=== PATIENT | female | born 1940 | race Caucasian/White ===

== ENCOUNTER 2016-11-25 13:33 | Emergency (ER) | payer MEDICARE, OTHER ==
--- NOTE | 2016-11-25 13:43 | EDPRACDOC ---
- History of Present Illness HPI: PATIENT WITH HYPOTENSION AND SOB AT SENIOR CARE THIS AM. 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 PATIENT STILL FULL CODE AT THIS POINT. PREVIOUSLY UNDER CARE OF DR. PEDROZA. Shortness of Breath: Severe Relevant History: Reports: COPD Rhinorrhea: Reports: None Ear Symptoms: Reports: None SOB Worsens with: Reports: Exertion SOB Improves with: Reports: Nothing <Soto Reis - Last Filed: 11/25/16 15:54> <Flor Acosta - Last Filed: 11/25/16 17:53> - General Information Chief Complaint: Dyspnea/Resp distress Stated Complaint: SEPSIS Time Seen by Provider: 11/25/16 13:40 Home Medications: Home Medications Aspirin [Ecotrin] 81 mg PO DAILY 03/27/15 Desipramine HCl 50 mg PO DAILY 03/27/15 Albuterol/Ipratropium Neb [Duoneb] 3 ml NEB .QID X 10D 11/25/16 Calcium Carbonate/Vitamin D3 [Calcium 500 + Vit D Caplet] 1 tab PO BID 11/25/16 Dexamethasone 4 mg PO BID 11/25/16 Fentanyl [Duragesic] 50 mcg TOP Q72H 11/25/16 Guaifenesin [Humabid, Mucinex] 1,200 mg PO .BID X 10D 11/25/16 Levofloxacin [Levaquin] 750 mg PO .DAILY X 7D 11/25/16 Methocarbamol [Robaxin] 500 mg PO TID 11/25/16 Morphine Sulfate 15 mg PO Q4H PRN 11/25/16 Morphine Sulfate 15 mg PO QAM 11/25/16 Omeprazole 40 mg PO DAILY 11/25/16 Ondansetron HCl [Zofran] 4 mg PO Q4H PRN 11/25/16 Oxazepam 10 mg PO TID 11/25/16 Sennosides/Docusate Sodium [Senna-S Tablet] 2 tab PO QHS 11/25/16 Valsartan [Diovan] 80 mg PO DAILY 11/25/16 Allergies/Adverse Reactions: Allergies Allergy/AdvReac Type Severity Reaction Status Date / Time boraxin Allergy Anaphylaxis Uncoded 11/25/16 13:41 * - Treatment Prior to ED Arrival Reported Medications/Treatment SPECIAL EDUCATION EDUCATIONAL ASSISTANT EMS Treatment BLS <Flor Acosta - Last Filed: 11/25/16 17:53> ED Past Medical History - History Reviewed Yes Nurses notes reviewed and agree except as marked Travel Outside of [place] in the Last 3 Months?: No - Patient Medical History Cardiac History: Reports: Hypertension, Hypercholesterolemia GI/ History: Reports: Gastroesophageal Reflux Psychological History: Reports: Anxiety Systemic History: Reports: Cancer (BREAST WITH SPREAD TO BONE), Diabetes, Other (NEURALGIA OF THE FACE) - Social Medical History Smoking Status: Never smoker Lives In: Prison Facility <Soto Reis - Last Filed: 11/25/16 15:54> EDM Review of Systems - Review of Systems ROS Negative Except as Marked: Yes All systems reviewed and were negative except as marked Constitutional: Fatigue. negative: Chills, Fever, Loss of Appetite, Weakness Eyes: No Symptoms Reported. negative: Redness, Blurred Vision, Double Vision, Discharge, Pain, Light Sensitive, Photophobia Ears: No Symptoms Reported. negative: Pain, Hearing Loss, Drainage, Ear Pulling Throat: No Symptoms Reported. negative: Pain, Swelling Nose: No Symptoms Reported. negative: Congestion, Bleeding, Discharge, Injection, Swelling, Deformity, Ecchymosis, Tender, Abrasion, Laceration Mouth: No Symptoms Reported. negative: Pain, Drooling Respiratory: Shortness of Breath. negative: Barky Cough, Brassy Cough, Cough, Hemoptysis, Wheezing Cardiovascular: No Symptoms Reported. negative: Chest Pain, Palpitations, Syncope, Edema, Orthopnea, PND, Skin Mottling, Cyanosis Gastrointestinal: No Symptoms Reported. negative: Pain, Constipation, Nausea, Vomiting, Diarrhea, Melena, Formula Intolerance Genitourinary: No Symptoms Reported. negative: Dysuria, Hematuria, Frequency, Discharge, Bleeding, Testicular Pain, Neurological: No Symptoms Reported. negative: Headache, Dizziness, Seizure, Numbness, Weakness, Speech Difficulty, Gait Difficulty Musculoskeletal: No Symptoms Reported. negative: Neck, Chestwall, Ribs, Back, Shoulder, Arm, Elbow, Forearm, Wrist, Hand, Pelvis, Hip, Femur, Knee, Leg, Ankle , Foot Integumentary: No Symptoms Reported. negative: Itching, Rash, Bruising, Wound Allergic/Immunologic: No Symptoms Reported. negative: Hives, Itching Hematologic: No Symptoms Reported. negative: Lymphadenopathy, Easy Bruising, Easy Bleeding Endocrine: No Symptoms Reported. negative: Weight Gain, Weight Loss Psychiatric: No Symptoms Reported. negative: Anxiety, Depression, Hallucinations, Insomnia, Suicidal <Soto Reis - Last Filed: 11/25/16 15:54> - Physical Exam Constitutional: Alert (Awake), Distress (MODERATE) Oriented to: Person, Place Last recorded Vital Signs: Oxygen Pulse Oxygen Saturation O2 Device Oxygen Flow Rate Fraction of Inspired Oxygen ( FIO2) - HEENT Head: Normal ( normocephalic) Eye Exam: Normal (PERRL, EOMI, Sclera white) Oropharynx: Normal (Pharynx:Moist without exudate,Gums-no swelling) Tympanic Membrane: Normal ENT EAC: Normal TMJ: Normal Nose: No Symptoms Reported (septum midline) Neck: Normal (FROM, trachea at midline) - Respiratory/Cardiovascular Respiratory: Diminished, Rhonchi (RIGHT DIMINISHED MORE THAN LEFT) Cardiovascular: Tachycardia - GI Auscultation: Normal (NABS) Palpation: Normal (Soft,No rebound or guarding, non distended) Tenderness: Non tender Mensah's Sign: Negative - Bladder: Normal - Musculoskeletal Back: Normal (Non-Tender) - Integumentary Skin: Cool, Mottling Lymphatics: Normal (no adenopathy) - Neurologic Memory Impaired: Normal Motor Function: Normal (Normal tone, Pulses 2+ No cyanosis or edema, FROM) Cranial Nerve: Normal (CN II-X11 intact sensation, strength 5/5) Cerebellar: Normal Mood Description: Normal Perception: Normal <Soto Reis - Last Filed: 11/25/16 15:54> - Physical Exam Last recorded Vital Signs: Last Vital Signs Temp 95.9 F L 11/25/16 13:46 Pulse 94 11/25/16 15:40 Resp 20 11/25/16 15:40 BP 99/45 L 11/25/16 15:40 Pulse Ox 97 11/25/16 15:40 Oxygen Pulse Oxygen Saturation 97 O2 Device Nasal Cannula Oxygen Flow Rate 2 Fraction of Inspired Oxygen ( 2 FIO2) <Flor Acosta - Last Filed: 11/25/16 17:53> ED Procedures - Central Line Informed of risks, benefits and alternatives described.: Yes Central Line Informed Consent Signed: Written Indication: Hypotension, Volume Resuscitation, Medication Administration, No peripheral access Line Procedure: Chlorahexadine, Sterile drapes applied, Sterile dressing applied Equipment used during procedure: Hat and Mask, Sterile Gown, Sterile Gloves Line Lumen: triple Central Line Postion: femoral (R) Anesthesia: Lidocaine cc's of anesthesia: 2 Line Position approached and secured by standard fashion: sutured, good blood return Complications: none <Flor Acosta - Last Filed: 11/25/16 17:53> ED SOB MDM - Results Result Diagrams: 11/25/16 13:55 11/25/16 13:55 - EKG EKG #1 EKG Time: 13:41 -: Yes EKG interpreted by me Rate: bpm: 187 Bob White: Normal Rhythm: Afib Block: None Hypertrophy: None ST: Normal <Soto Reis - Last Filed: 11/25/16 15:54> - Results Result Diagrams: 11/25/16 13:55 11/25/16 13:55 Results: WBC 7.0 xk/uL (3.8-10.8) 11/25/16 13:55 RBC 3.71 xM/uL (4.20-5.40) L 11/25/16 13:55 Hgb 11.1 g/dL (12.0-16.0) L 11/25/16 13:55 Hct 35.7 % (36-47) L 11/25/16 13:55 MCV 96 fL (81-99) 11/25/16 13:55 MCH 30.0 pg (27-32) 11/25/16 13:55 MCHC 31.2 g/dl (33-36) L 11/25/16 13:55 RDW 17.1 % (11.5-14.5) H 11/25/16 13:55 Plt Count 60 xk/uL (130-400) L 11/25/16 13:55 MPV 11.0 fL (7.4-10.4) H 11/25/16 13:55 Neut % (Auto) Cancelled 11/25/16 13:55 Lymph % (Auto) Cancelled 11/25/16 13:55 [place] % (Auto) Cancelled 11/25/16 13:55 Eos % (Auto) Cancelled 11/25/16 13:55 Baso % (Auto) Cancelled 11/25/16 13:55 Absolute Neuts (auto) Cancelled 11/25/16 13:55 Absolute Lymphs (auto) Cancelled 11/25/16 13:55 Seg Neuts % (Manual) 81 % (45-76) H 11/25/16 13:55 Band Neutrophils % 13 % (0-5) H 11/25/16 13:55 Monocytes % (Manual) 6 % (0-10) 11/25/16 13:55 Absolute Neutrophils 6.58 xk/uL (1.7-8.2) 11/25/16 13:55 Toxic Granulation 3+ 11/25/16 13:55 Dohle Bodies 2+ 11/25/16 13:55 Platelet Estimate Dec (NORMAL) 11/25/16 13:55 RBC Morphology 1+ teardrop 1+ aniso 1+ poik 11/25/16 13:55 RBC Morphology 1+ teardrop 1+ aniso 1+ poik 11/25/16 13:55 RBC Morphology 1+ teardrop 1+ aniso 1+ poik 11/25/16 13:55 PT 12.6 SEC (9.2-11.2) H 11/25/16 13:55 INR 1.2 11/25/16 13:55 APTT 29.0 SEC (22-35) 11/25/16 13:55 Puncture Site Right radial 11/25/16 13:45 pH 7.260 pH UNITS (7.35-7.45) L 11/25/16 13:45 pCO2 29.0 mmHg (35-45) L 11/25/16 13:45 pO2 70.0 mmHg (80-100) L 11/25/16 13:45 HCO3 13.0 MMOL/L (22-26) L 11/25/16 13:45 Total CO2 13.9 MMOL/L (23-27) L 11/25/16 13:45 Base Excess -12.6 (+/- 2) L 11/25/16 13:45 FiO2 % 2 lpm nc 11/25/16 13:45 Specimen Drawn By Roude 11/25/16 13:45 Sodium 133 mEq/L (137-146) L 11/25/16 13:55 Potassium 7.3 mEq/L (3.5-5.1) H* 11/25/16 13:55 Chloride 107 mEq/L (98-107) 11/25/16 13:55 Carbon Dioxide 11 mMOL/L (22-33) L 11/25/16 13:55 Anion Gap 22 mEq/L (8-16) H 11/25/16 13:55 BUN 96 MG/DL (7-17) H 11/25/16 13:55 Creatinine 2.60 MG/DL (0.52-1.04) H 11/25/16 13:55 Estimated GFR (MDRD) 18 mL/min (>=60) L 11/25/16 13:55 Glucose 411 MG/DL (70-99) H* 11/25/16 13:55 Calculated Osmolality 303 MOs/Kg (270-290) H 11/25/16 13:55 Lactic Acid 5.4 mEq/L (0.7-2.1) H* 11/25/16 14:10 Calcium 7.5 MG/DL (8.4-10.2) L 11/25/16 13:55 Corrected Calcium 9.1 MG/DL (8.4-10.2) 11/25/16 13:55 Total Bilirubin 4.3 MG/DL (0.2-1.3) H 11/25/16 13:55 AST 100 IU/L (14-36) H 11/25/16 13:55 ALT 116 IU/L (9-52) H 11/25/16 13:55 Alkaline Phosphatase 546 IU/L (55-165) H 11/25/16 13:55 Troponin I 0.02 ng/mL (<.04) 11/25/16 13:55 Dae-I-Oltfwrhfwix Pept 1990 pg/mL (0-1800) H 11/25/16 13:55 Total Protein 5.7 G/DL (6.3-8.2) L 11/25/16 13:55 Albumin 2.4 G/DL (3.5-5.0) L 11/25/16 13:55 Lab Results 11/25/16 11/25/16 11/25/16 14:10 13:55 13:55 WBC 7.0 RBC 3.71 L Hgb 11.1 L Hct 35.7 L MCV 96 MCH 30.0 MCHC 31.2 L RDW 17.1 H Plt Count 60 L MPV 11.0 H Neut % (Auto) Cancelled Lymph % (Auto) Cancelled [place] % (Auto) Cancelled Eos % (Auto) Cancelled Baso % (Auto) Cancelled Absolute Neuts (auto) Cancelled Absolute Lymphs (auto) Cancelled Seg Neuts % (Manual) 81 H Band Neutrophils % 13 H Monocytes % (Manual) 6 Absolute Neutrophils 6.58 Toxic Granulation 3+ Dohle Bodies 2+ Platelet Estimate Dec RBC Morphology 1+ poik PT 12.6 H INR 1.2 APTT 29.0 Puncture Site pH pCO2 pO2 HCO3 Total CO2 Base Excess FiO2 % Specimen Drawn By Sodium Potassium Chloride Carbon Dioxide Anion Gap BUN Creatinine Estimated GFR (MDRD) Glucose Calculated Osmolality Lactic Acid 5.4 H* Calcium Corrected Calcium Total Bilirubin AST ALT Alkaline Phosphatase Troponin I Kak-I-Ccwvonreypf Pept Total Protein Albumin 11/25/16 11/25/16 13:55 13:45 WBC RBC Hgb Hct MCV MCH MCHC RDW Plt Count MPV Neut % (Auto) Lymph % (Auto) [place] % (Auto) Eos % (Auto) Baso % (Auto) Absolute Neuts (auto) Absolute Lymphs (auto) Seg Neuts % (Manual) Band Neutrophils % Monocytes % (Manual) Absolute Neutrophils Toxic Granulation Dohle Bodies Platelet Estimate RBC Morphology PT INR APTT Puncture Site Right radial pH 7.260 L pCO2 29.0 L pO2 70.0 L HCO3 13.0 L Total CO2 13.9 L Base Excess -12.6 L FiO2 % 2 lpm nc Specimen Drawn By Roude Sodium 133 L Potassium 7.3 H* Chloride 107 Carbon Dioxide 11 L Anion Gap 22 H BUN 96 H Creatinine 2.60 H Estimated GFR (MDRD) 18 L Glucose 411 H* Calculated Osmolality 303 H Lactic Acid Calcium 7.5 L Corrected Calcium 9.1 Total Bilirubin 4.3 H AST 100 H ALT 116 H Alkaline Phosphatase 546 H Troponin I 0.02 Uko-Z-Hndfeezhmjv Pept 1990 H Total Protein 5.7 L Albumin 2.4 L - Additional Information Additional Information: No changes in clinical status or new information from previous documentation. Vital Signs: Temp:95.9 F HR: 96 BP: 97/55 RR: 18 Pox: 99%. Continue with current plan. PT IS STABLE FOR TRANSFER <Flor Acosta - Last Filed: 11/25/16 17:53> ED Critical Care Note - Critical Care Note Total Time (mins): 60 <Soto Reis - Last Filed: 11/25/16 15:54> - Departure Yes I personally saw and evaluated the patient. Disposition: Trans. to Other Hospital Education/Counseling Given To: Patient Education/Counseling Given Regarding: Diagnosis, Treatment, Prognosis Decision to Transfer Time: 15:06 - Physician Consulted Hospitalist Time Called: 15:29 Provider Called: DR. mejias ([facility]) Time Drug Safety Scientist Returned Call: 15:56 <Soto Reis - Last Filed: 11/25/16 15:54> <Flor Acosta - Last Filed: 11/25/16 17:53> - Departure Condition: Critical Final Diagnosis: Hyperkalemia, Weakness, COPD exacerbation, right femoral vein triple lumen catheter, stage iv breast cancer, Dehydration Dyspnea Qualifiers: Dyspnea type: dyspnea on exertion Qualified Code(s): R06.09 - Other forms of dyspnea Acute renal failure Qualifiers: Acute renal failure type: unspecified Qualified Code(s): N17.9 - Acute kidney failure, unspecified DKA (diabetic ketoacidoses) Qualifiers: Diabetes mellitus type: type 2 Diabetes mellitus complication detail: without coma Qualified Code(s): E13.10 - Other specified diabetes mellitus with ketoacidosis without coma Instructions: Renal Failure Diet (GEN), Managing Diabetes During Sick Days (ED) , Diabetes and Exercise Referrals: Tamir Tam MD [Primary Care Provider] - One Week Forms: Patient Discharge Instructions, ED Discharge Instructions
[2016-11-25 13:46] VITALS: BMI 31.0
[2016-11-25] MEDS ORDERED: Albuterol/Ipratropium Neb 3 ML NEB NEB ONE (13:49)
[2016-11-25 13:50] LABS: ALLEN'S TEST PASS; BEb -12.6 (+/- 2)
[2016-11-25 13:51] LABS: ABG Draw Site Right Radial; TCO2 13.9 MMOL/L (23-27)
--- NOTE | 2016-11-25 14:28 | DIRPT ---
CLINICAL DATA: Shortness of breath. EXAM: PORTABLE CHEST 1 VIEW COMPARISON: March 31, 2015. FINDINGS: The heart size and mediastinal contours are within normal limits. Both lungs are clear. No pneumothorax or pleural effusion is noted. Status post surgical posterior fusion of lower thoracic and lumbar spine. IMPRESSION: No acute cardiopulmonary abnormality seen. Electronically Signed By: Matt Toribio Jr, M.D. On: 11/25/2016 14:26
[2016-11-25 14:31] LABS: BLOOD UREA NITROGEN 96 MG/DL (7-17); CALC CORRECTED 9.1 MG/DL (8.4-10.2); CALCIUM 7.5 MG/DL (8.4-10.2); CHLORIDE 107 mEq/L (98-107); SODIUM LEVEL 133 mEq/L (137-146); TOTAL PROTEIN 5.7 G/DL (6.3-8.2)
[2016-11-25 14:35] LABS: PT-INR 1.2
[2016-11-25 14:50] LABS: CALCULATED OSMOLALITY 303 MOs/Kg (270-290); GLUCOSE 411 MG/DL (70-99)
[2016-11-25] MEDS ORDERED: DEXTROSE 25 GM/50 ML PFS IV ONE (15:04)
[2016-11-25] MEDS ORDERED: SODIUM POLYSTYRENE SULFONATE 15 GM BOTTLE PO ONE (15:04)
[2016-11-25] MEDS ORDERED: NS 1,000 ML IV ONE ×2 (15:06→16:45)
[2016-11-25 15:11] LABS: SEG NEUTROPHIL 81 % (45-76)
[2016-11-25] MEDS ORDERED: REGULAR INSULIN 100 UNITS/ML - 3 ML VIAL IV ONE (15:30)
[2016-11-25] MEDS ORDERED: SODIUM BICARBONATE 50 ML IV ONE (16:00)
[2016-11-25] MEDS ORDERED: Insulin, Regular 100 UNITS in NS 99 ML IV SCH ×2 (16:00)
[2016-11-25] MEDS: NS 1,000 ML IV ONE ×3 (16:56→16:58)
[2016-11-25 17:50] VITALS: PULSE 96
[2016-11-25 18:09] VITALS: TEMP 99.8
[2016-11-25 18:15] VITALS: BP 120/56
== END 2016-11-25 17:37 | disposition home or self-care (01) ==
LOC: ED 13:33
DX: E87.5 Hyperkalemia (principal); R53.1 Weakness; J44.1 Chronic obstructive pulmonary disease with (acute) exacerbation; R06.09 Other forms of dyspnea; N17.9 Acute kidney failure, unspecified; E13.10 Other specified diabetes mellitus with ketoacidosis without coma; E86.0 Dehydration; I10 Essential (primary) hypertension; E78.00 Pure hypercholesterolemia, unspecified; K21.9 Gastro-esophageal reflux disease without esophagitis; F41.9 Anxiety disorder, unspecified; C50.919 Malignant neoplasm of unspecified site of unspecified female breast; C79.51 Secondary malignant neoplasm of bone; Z79.899 Other long term (current) drug therapy
CPT/HCPCS: 36415; 36556; 36600; 71010; 80053; 82803; 82962; 83605; 83880; 84484; 85007; 85027; 85610; 85730; 93005; 94640; 96361; 96365; 96366; 96375; 99285; A9270; J1815; J3490; J7030; J7620